=== PATIENT | male | born 2000 | race African-American/Black ===

== ENCOUNTER 2022-11-03 11:01 | Emergency (ER) | payer MEDICAID, OTHER ==
[~2022-11-03] VITALS: Ht 175.3 cm; Wt 71.2 kg
[2022-11-03 11:40] VITALS: O2SAT 100
[2022-11-03] MEDS ORDERED: ALBU6.7H3 INH (11:51)
[2022-11-03 12:43] VITALS: BP 128/74; PULSE 63; RESP 18; TEMP 98.4
== END 2022-11-03 12:44 | disposition home or self-care (01) ==
LOC: ER 11:01
DX: Z00.00 Encounter for general adult medical examination without abnormal findings (principal); Z76.0 Encounter for issue of repeat prescription
CPT/HCPCS: 99281